=== PATIENT | female | born 1990 | race African-American/Black ===

== ENCOUNTER 2018-11-23 21:25 | Emergency (ER) | payer SELFPAY ==
[~2018-11-23] VITALS: Ht 157.5 cm; Wt 59.0 kg
--- NOTE | 2018-11-23 21:51 | NUR ---
ED Nurse Note: Received with c/o vaginal bleeding, since 0500 this morning, with pelvic cramping. Pt is 14 weeks .
--- NOTE | 2018-11-23 22:11 | Emergency Room Report ---
History of Present Illness General Chief Complaint: Complications Source: Patient Present Illness HPI 28-year-old female presented after increased vaginal bleeding. Patient reports having onset of bleeding this morning. Patient had been on a plane flight from [place] . She reports having increased abdominal cramping. Patient states she is approximately 14 weeks . Patient is . She denies any vomiting. She reports having some continued abdominal cramping. She was noted to have multiple blood clots earlier in the day. Allergies: Coded Allergies: No Known Allergies (Unverified , 11/23/18) Patient History Past Medical History: see triage record Last Menstrual Period: 08/08/2018 Now: Yes - 14 weeks : 2 Reviewed Nursing Documentation: PMH: Agreed; PSxH: Agreed Nursing Documentation-PMH Past Medical History: No History, Except For Hx Cardiac Problems: No - miscarriage 2011 Review of Systems All Other Systems: negative except mentioned in HPI Physical Exam Vital Signs Date Time Temp Pulse Resp B/P (MAP) Pulse Ox O2 Delivery O2 Flow Rate FiO2 11/23/18 21:41 98.2 122 16 140/81 98 Room Air Sp02 EP Interpretation: reviewed, normal General Appearance: normal inspection, well appearing, no apparent distress, alert, GCS 15, non-toxic Head: atraumatic ENT: normal ENT inspection, hearing grossly normal, normal voice Neck: normal inspection, full range of motion, supple, no bony tend Respiratory: normal inspection, lungs clear, normal breath sounds, no respiratory distress, no retraction, no wheezing Cardiovascular #1: regular rate, rhythm, no edema Gastrointestinal: normal inspection, normal bowel sounds, non tender, soft, no guarding, no hernia Genitourinary: no CVA tenderness Musculoskeletal: normal inspection, back normal, normal range of motion Neurologic: normal inspection, alert, oriented x3, responsive, transplant registered nurse III-XII nml as tested, speech normal Psychiatric: normal inspection, judgement/insight normal, mood/affect normal Skin: normal inspection, normal color, no rash Medical Decision Making Diagnostic Impression: Primary Impression: Complete miscarriage ER Course Patient presented for vaginal bleeding during . Differential diagnosis include was not limited to threaten , incomplete , anemia among others. Because of complexity of patient's case laboratory testing and imaging studies were ordered. Patient was noted to have significant difficulty with vaginal bleeding. Vaginal bleeding started yesterday. Patient was reportedly approximately 14 weeks . Pelvic ultrasound showed intrauterine gestational sac which was in the process of exiting in the uterus. Pelvic exam showed a gestational sac which was removed with ring forceps. Patient started on IV fluids. She was noted to have some prior history of anemia. Patient be discharged home. She was given prescription for iron. She advised to return if she began having worsening fever, increased bleeding or other concerns. She is advised to take iron pills and to be on bedrest. Labs Test 11/23/18 22:00 White Blood Count 14.4 K/UL (4.8-10.8) Red Blood Count 4.35 M/UL (4.20-5.40) Hemoglobin 9.0 G/DL (12.0-16.0) Hematocrit 30.0 % (37.0-47.0) Mean Corpuscular Volume 69 FL (80-99) Mean Corpuscular Hemoglobin 20.7 PG (27.0-31.0) Mean Corpuscular Hemoglobin Concent 29.9 G/DL (32.0-36.0) Red Cell Distribution Width 21.2 % (11.6-14.8) Platelet Count 360 K/UL (150-450) Mean Platelet Volume 5.0 FL (6.5-10.1) Neutrophils (%) (Auto) % (45.0-75.0) Lymphocytes (%) (Auto) % (20.0-45.0) Monocytes (%) (Auto) % (1.0-10.0) Eosinophils (%) (Auto) % (0.0-3.0) Basophils (%) (Auto) % (0.0-2.0) Differential Total Cells Counted 100 Neutrophils % (Manual) 94 % (45-75) Lymphocytes % (Manual) 4 % (20-45) Monocytes % (Manual) 2 % (1-10) Eosinophils % (Manual) 0 % (0-3) Basophils % (Manual) 0 % (0-2) Band Neutrophils 0 % (0-8) Platelet Estimate Adequate Platelet Morphology Giant Platelets Rare Polychromasia 1+ Poikilocytosis 2+ Anisocytosis 3+ Prothrombin Time 10.4 SEC (9.30-11.50) Prothromb Time International Ratio 1.0 (0.9-1.1) Activated Partial Thromboplast Time 22 SEC (23-33) Sodium Level 136 MMOL/L (136-145) Potassium Level 3.6 MMOL/L (3.5-5.1) Chloride Level 100 MMOL/L (98-107) Carbon Dioxide Level 23 MMOL/L (21-32) Anion Gap 13 mmol/L (5-15) Blood Urea Nitrogen 6 mg/dL (7-18) Creatinine 0.7 MG/DL (0.55-1.30) Estimat Glomerular Filtration Rate > 60 mL/min (>60) Glucose Level 126 MG/DL (74-106) Calcium Level 10.0 MG/DL (8.5-10.1) Total Bilirubin 0.2 MG/DL (0.2-1.0) Aspartate Amino Transf (AST/SGOT) 14 U/L (15-37) Alanine Aminotransferase (ALT/SGPT) 15 U/L (12-78) Alkaline Phosphatase 76 U/L (46-116) Total Protein 8.6 G/DL (6.4-8.2) Albumin 4.2 G/DL (3.4-5.0) Globulin 4.4 g/dL Albumin/Globulin Ratio 1.0 (1.0-2.7) Lipase 79 U/L (73-393) Human Chorionic Gonadotropin, Quant 2543 mIU/mL (1-6) Last Vital Signs Date Time Temp Pulse Resp B/P (MAP) Pulse Ox O2 Delivery O2 Flow Rate FiO2 11/23/18 21:41 98.2 122 16 140/81 98 Room Air Status: improved Disposition: HOME, SELF-CARE Condition: Stable Scripts Ferrous Sulfate* (FERROUS SULFATE*) 325 Mg Tablet 325 MG ORAL DAILY, #30 TAB 0 Refills Prov: Popeye Armstrong MD 11/24/18 Popeye Armstrong MD Nov 23, 2018 22:11
--- NOTE | 2018-11-23 22:15 | NUR ---
Pt's clothing saturated with blood; currently oozing BRB.
[2018-11-23 22:20] LABS: MEAN CORPUSCULAR VOLUME 69 FL (80-99); PLATELET COUNT 360 K/UL (150-450); RED BLOOD COUNT 4.35 M/UL (4.20-5.40); RED CELL DISTRIBUTION WIDTH 21.2 % (11.6-14.8); WHITE BLOOD COUNT 14.4 K/UL (4.8-10.8)
[2018-11-23 22:22] LABS: ANION GAP 13 mmol/L (5-15); BLOOD UREA NITROGEN 6 mg/dL (7-18); CARBON DIOXIDE 23 MMOL/L (21-32); CHLORIDE 100 MMOL/L (98-107); CREATININE 0.7 MG/DL (0.55-1.30); POTASSIUM 3.6 MMOL/L (3.5-5.1); SODIUM 136 MMOL/L (136-145)
[2018-11-23 22:26] LABS: ALANINE AMINOTRANSFERASE 15 U/L (12-78); ALBUMIN 4.2 G/DL (3.4-5.0); ALKALINE PHOSPHATASE 76 U/L (46-116); ASPARTATE AMINO TRANSFERASE 14 U/L (15-37); BILIRUBIN,TOTAL 0.2 MG/DL (0.2-1.0)
[2018-11-24] MEDS ORDERED: Solu-MEDROL 125mg Inj ONE (00:33)
[2018-11-24] MEDS ORDERED: FERROUS SULFAT325 MG ORAL (03:40)
[2018-11-24 03:59] VITALS: BP 120/71
--- NOTE | 2018-11-24 04:00 | NUR ---
ER DISCHARGE NOTE: Patient is cleared to be discharged per ERMD, pt is aox4, on room air, with stable vital signs. Accompanied by significant other. pt was given dc and prescription instructions, pt was able to verbalize understanding, pt id band and iv site removed without complications. pt is able to ambulate with steady gait. pt took all belongings.
[2018-11-24 04:58] LABS: APPEARANCE,URINE SLIGHTLY CLOUDY; BILIRUBIN, URINE NEGATIVE (NEGATIVE); COLOR,URINE PALE YELLOW; GLUCOSE, URINE (UA) NEGATIVE (NEGATIVE); KETONES,URINE 4+ (NEGATIVE); LEUKOCYTE ESTERASE ,URINE 1+ (NEGATIVE); NITRITE,URINE NEGATIVE (NEGATIVE); PH,URINE 5 (4.5-8.0); PROTEIN,URINE 2+ (NEGATIVE); UROBILINOGEN,URINE NORMAL MG/DL (0.0-1.0)
--- NOTE | 2018-11-25 09:32 | Diagnostic Imaging Report ---
Indication: Bleeding, positive test Technique: Transabdominal and transvaginal images of the pelvis. Doppler interrogation of the bilateral ovaries Comparison: none Findings: Uterus measures 11.6 cm length by 5.4 cm AP. Endometrium measures 8 mm thick. Small amount of fluid is seen within the endometrium. Within the cervix, there is a fluid collection which measures 3.6 x 3.1 x 1.2 cm, contains internal septations. No definite yolk sac or pole No myometrial abnormality. Left ovary measures 2.2 cm in length. Right ovary measures 2.2 cm length. Impression: 3.6 x 3.1 x 1.2 cm fluid collection within the cervix, probably represents an in progress. Correlate with clinical findings and serial beta hCGs is recommended. This agrees with clinical findings reported by the emergency room physician in the electronic medical record Negative for adnexal mass or free cul-de-sac fluid
== END 2018-11-24 04:00 | disposition home or self-care (01) ==
LOC: EMR 22:06
DX: O03.9 Complete or unspecified spontaneous abortion without complication (principal)
CPT/HCPCS: 36415; 76830; 76856; 80053; 81003; 81025; 83690; 84702; 85007; 85025; 85610; 85730; 86850; 86900; 86901; 96360; 99284; J1940; J2930